=== PATIENT | female | born 1950 | race Caucasian/White ===

== ENCOUNTER 2018-04-17 14:35 | Day surgery (SDC) | payer MEDICARE, OTHER, SELFPAY ==
[2018-04-17] VITALS (7 sets, daily range): BP systolic 91–122; BP diastolic 59–78; PULSE 69–81; RESP 12–16; TEMP 36.1–37.1; O2SAT 96–98; BMI 27.9
--- NOTE | 2018-04-17 | PATH_ITS ---
[facility] Accession Number: [id number] . 01 Material submitted: . RIGHT BREAST . 02 Diagnosis: Right Breast, Re-excision of Margins Lumpectomy Site: One minute focus of atypical ductal hyperplasia. Please see comment. Background of benign breast tissue with features of previous instrumentation. Negative for in situ carcinoma or invasive malignancy. MRV/04/23/2018 . 02 Comment: The focus of atypical ductal hyperplasia measures less than 1 mm and is 8 mm from the nearest (anterior) margin. . 02 Electronically signed: . Gloria Charles MD, Pathologist NPI- [id number] . 01 Gross description: . Received in formalin, labeled 1) Reexcision right breast lumpectomy, short=superior, long=lateral, double=anterior, is a piece of breast tissue with no overlying skin (1.3 cm AP, 5.1 cm SI, 4.6 cm ML) oriented with three black sutures (short-superior, long-lateral, double-anterior). No localization wire is present. The anterior aspect is smooth and appears to be the surface of a previous biopsy cavity. The specimen is serially sectioned S1 into 18 slices with the superior and inferior resection margins as slices #1 and #18, respectively. The breast tissue is fatty and densely fibrous along the anterior aspect. No nodules, masses or lesions are identified. Ink code: purple-anterior surface; yellow-posterior; black-superior; orange-inferior; green-medial; blue-lateral. Section code: (A1) superior resection margin, perpendicularly sectioned; (A2) slices #2 and #3; (A3) slices #4 and #5; (A4) slice #6; (A5) slice #7; (A6) slice #8; (A7) slice #9; (A8) slice #10; (A9) slice #11, further sliced; (A10) slice #12, further sliced; (A11) slices #13 and #14; (A12) slices #15-#17; (A13) inferior resection margin, perpendicularly sectioned. Specimen entirely submitted. Note: Approximate total fixation time in formalin-54 hours 30 minutes, calculated using a collection date of 04/17/2018 with no collection time given. ([id number]) /MRV . 02 Pathologist provided ICD-10: D05.10 . 02 CPT . 301664 Performed at: 01 [facility] [id number] MD Mustapha Oconnor MD Phone: [phone] Performed at: 02 [facility] [address] [place], [place] [id number] MD Gwyn Muñiz MD Phone: [phone]
[2018-04-17] MEDS: LACTATED RINGERS 1,000 ML 42 ML IV (15:13)
--- NOTE | 2018-04-17 15:49 | PM.PREOP ---
Pre-operative Note Interval Note Pre-op Check: History & Physical Reviewed by Physician
[2018-04-17] MEDS: CEFAZOLIN 2 GM/100 ML FROZ.PIGGY IV (16:05)
--- NOTE | 2018-04-17 16:32 | PM.OP.1 ---
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 Complete lateral and posterior margins were removed. Specimen was marked with a short stitch superior, long stitch lateral, and double stitch on the anterior margin which would be the internal surface of the biopsy cavity Closure Type: primary Specimen(s): other Implants & Drains: Hemoclips employed to sadia the lumpectomy cavity Estimated Blood Loss (mL): 15 Blood products transfused: none Procedure in detail: After obtaining informed consent, the patient is brought to the operating room and placed in the supine position on the operating table. Following successful induction of general endotracheal anesthesia, appropriate padding of all bony prominences, and placement of appropriate monitors, the right breast is prepped and draped in the standard surgical fashion. A time-out was held per SC 0 AP protocol. Following infiltration with local anesthetic to create a field block, the existing right breast incision was reopened and carried down through the skin and subcutaneous tissue. The breast was entered and the breast cavity easily identified. A small amount of serosanguineous seroma fluid was aspirated from the cavity. The lateral edge of the lumpectomy cavity was then grasped and the entire lateral and posterior margin excised sharply. No anterior tissue was available for reexcision as we are on the dermis anteriorly and on the muscle posteriorly. The entire specimen was removed as a single piece and marked appropriately for orientation. The wound was checked for hemostasis and such was obtained with a mixture of sutures and Bovie cautery. The wound was irrigated with warm water and checked once again for hemostasis. We were satisfied that all was clean and dry, it was closed in 2 layers with Vicryl and Monocryl suture. All sponge, needle, and instrument counts were correct at conclusion of the case. The patient tolerated the procedure very well. She was allowed to awake from anesthesia and taken to the postanesthesia care unit in good condition Complications: none Condition: stable Disposition: PACU Plan for aftercare: 1. Discharge to home 2. Follow up with me in 2 weeks
[2018-04-17] MEDS: BUPIVACAINE 0.5% (PF) 30 ML VIAL 20 ML INJ (16:36)
[2018-04-17] MEDS: LIDOCAINE 1% W/EPI INJ 20 ML INJ (16:38)
[2018-04-17] MEDS: OXYCODONE/ACETAMINOPHEN 5/325 TABLET 1 TAB PO (17:02)
== END 2018-04-17 17:28 ==
LOC: OR 14:37
PROVIDERS: PCP Family Medicine; Visit Provider Surgery
PROC: (CPT 19301; principal; 2018-04-17 15:45)
DX: D05.10 Intraductal carcinoma in situ of unspecified breast (principal)
CPT/HCPCS: 19301; 88305; J0690; J1100; J2405; J2704; J3010

== ENCOUNTER 2018-11-14 07:45 | Day surgery (SDC) | payer MEDICARE, OTHER, SELFPAY ==
[2018-11-14 08:06] VITALS: BP 106/76; PULSE 71; RESP 15; TEMP 36.4; O2SAT 97; BMI 28.3
[2018-11-14] MEDS: SODIUM CHLORIDE 0.9% 1,000 ML 200 ML IV (08:10)
--- NOTE | 2018-11-14 08:40 | SUR.PREOP ---
pt got light headed with iv start, head of bed down, o2 applied at 2l, cold cloth to head at 0830, 0834 pt feeling much better
--- NOTE | 2018-11-14 09:04 | PM.HP.1 ---
History of Present Illness Date Patient Seen: 11/14/18 Time Patient Seen: 09:06 Chief complaint: [id number] SCREENING COLONOSCOPY Narrative: Very pleasant lady who is well known to me. She presents today for screening colonoscopy. Her last colonoscopy was in 2008. At that time was normal and without any polyps or mucosal abnormalities. She denies new problems or symptoms related to the function of her GI tract. She reports she has colonoscopy as part of a health maintenance program. 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) Esophageal stenosis (Acute) Hyperlipidemia (Acute) Meningioma (Acute) Migraines (Acute) Neck pain (Acute) Surgical History H/O colonoscopy (Acute) H/O esophagogastroduodenoscopy (Acute) H/O oophorectomy (Acute) H/O right breast biopsy (Acute) History of tubal ligation (Acute) S/P laminectomy (Acute) History of bilateral salpingo-oophorectomy (BSO) History of esophageal dilatation (08/17/17) History of esophagogastroduodenoscopy (EGD) (06/12/14) History of esophagogastroduodenoscopy (EGD) (08/17/17) Status post colonoscopy (04/30/09) Status post tubal ligation Family & Social History Family History: Reviewed 11/14/18 by Makayla Grullon MD Social History: household members spouse Tobacco & Substance use: Smoking Status Never smoker alcohol intake current Substance Use Type does not use Meds Home Medications Medication Instructions Recorded Confirmed Type TIMOLOL MALEATE 1 drp OPHTH QDAY #0 04/11/12 04/30/18 History [probiotic] See Label Instructions .ROUTE 05/30/17 08/22/18 History .COMPLEX #0 cholecalciferol (vitamin D3) 400 unit PO DAILY #0 05/30/17 08/22/18 History [Vitamin D3] ondansetron [Zofran ODT] 4 mg PO Q6H PRN #20 tab 18 04/30/18 Rx oxycodone-acetaminophen [Percocet] 1 tab PO Q4-6H PRN #20 tab MDD 5 03/27/18 04/30/18 Rx omeprazole 40 mg capsule,delayed 40 mg PO BID #180 cap 04/04/18 08/22/18 Rx release oxycodone-acetaminophen [Percocet] 1 tab PO Q4-6H PRN #20 tab MDD 6 04/17/18 04/30/18 Rx aspirin 81 mg chewable tablet 81 mg PO DAILY 08/22/18 08/22/18 History tamoxifen PO 08/22/18 08/22/18 History Allergies Allergy/AdvReac Type Severity Reaction Status Date / Time procaine [From Novocain] Allergy Severe heart Verified 11/14/18 08:04 palpitations adhesive tape [ADHESIVE TAPE] Allergy Mild RASH Verified 04/17/18 15:02 codeine [CODEINE] Allergy Mild Nausea Verified 11/14/18 08:04 amoxicillin AdvReac Intermediate Rash Verified 04/17/18 15:02 Metals Allergy Mild Rash Uncoded 04/17/18 15:02 Review of Systems Review of Systems All systems reviewed & are unremarkable except as noted in HPI and below Exam Vital Signs (past 8 hours): - 11/14/18 08:06 Temperature 97.6 F Pulse Rate 71 Respiratory Rate 15 Blood Pressure 106/76 Pulse Oximetry 97 Oxygen Delivery Method Room Air Narrative Exam Narrative: Well-nourished well-developed lady in no distress HEENT: Normocephalic and atraumatic, pupils equal round reactive to light accommodation with anicteric sclera Lungs: Clear to auscultation bilaterally Heart: Regular rate and rhythm Abdomen: Soft, nontender, bowel sounds Extremities: Warm well perfused and without edema Assessment & Plan Plan: Assessment/Plan Narrative: Laverne presents today for colonoscopy for screening purposes. We discussed the risks and benefits procedure and she has expressed a desire to complete it today.
--- NOTE | 2018-11-14 09:08 | P.HP_ITS ---
History of Present Illness Date Patient Seen: 11/14/18 Time Patient Seen: 09:06 Chief complaint: [id number] SCREENING COLONOSCOPY Narrative: Very pleasant lady who is well known to me. She presents today for screening colonoscopy. Her last colonoscopy was in 2008. At that time was normal and without any polyps or mucosal abnormalities. She denies new problems or symptoms related to the function of her GI tract. She reports she has colonoscopy as part of a health maintenance program. 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) Esophageal stenosis (Acute) Hyperlipidemia (Acute) Meningioma (Acute) Migraines (Acute) Neck pain (Acute) Surgical History H/O colonoscopy (Acute) H/O esophagogastroduodenoscopy (Acute) H/O oophorectomy (Acute) H/O right breast biopsy (Acute) History of tubal ligation (Acute) S/P laminectomy (Acute) History of bilateral salpingo-oophorectomy (BSO) History of esophageal dilatation (08/17/17) History of esophagogastroduodenoscopy (EGD) (06/12/14) History of esophagogastroduodenoscopy (EGD) (08/17/17) Status post colonoscopy (04/30/09) Status post tubal ligation Family & Social History Family History: Reviewed 11/14/18 by Makayla Grullon MD Social History: household members spouse Tobacco & Substance use: Smoking Status Never smoker alcohol intake current Substance Use Type does not use Meds Home Medications Medication Instructions Recorded Confirmed Type TIMOLOL MALEATE 1 drp OPHTH QDAY #0 04/11/12 04/30/18 History [probiotic] See Label Instructions .ROUTE 05/30/17 08/22/18 History .COMPLEX #0 cholecalciferol (vitamin D3) 400 unit PO DAILY #0 05/30/17 08/22/18 History [Vitamin D3] ondansetron [Zofran ODT] 4 mg PO Q6H PRN #20 tab 18 04/30/18 Rx oxycodone-acetaminophen [Percocet] 1 tab PO Q4-6H PRN #20 tab MDD 5 03/27/1804/12 Rx omeprazole 40 mg capsule,delayed 40 mg PO BID #180 cap 04/04/18 08/22/18 Rx release oxycodone-acetaminophen [Percocet] 1 tab PO Q4-6H PRN #20 tab MDD 6 04/17/1804/12 Rx aspirin 81 mg chewable tablet 81 mg PO DAILY 08/22/18 08/22/18 History tamoxifen PO 08/22/18 08/22/18 History Allergies Allergy/AdvReac Type Severity Reaction Status Date / Time procaine [From Novocain] Allergy Severe heart Verified 11/14/18 08:04 palpitations adhesive tape [ADHESIVE TAPE] Allergy Mild RASH Verified 04/17/18 15:02 codeine [CODEINE] Allergy Mild Nausea Verified 11/14/18 08:04 amoxicillin AdvReac Intermediate Rash Verified 04/17/18 15:02 Metals Allergy Mild Rash Uncoded 04/17/18 15:02 Review of Systems Review of Systems All systems reviewed & are unremarkable except as noted in HPI and below Exam Vital Signs (past 8 hours): - 11/14/18 08:06 Temperature 97.6 F Pulse Rate 71 Respiratory Rate 15 Blood Pressure 106/76 Pulse Oximetry 97 Oxygen Delivery Method Room Air Narrative Exam Narrative: Well-nourished well-developed lady in no distress HEENT: Normocephalic and atraumatic, pupils equal round reactive to light accommodation with anicteric sclera Lungs: Clear to auscultation bilaterally Heart: Regular rate and rhythm Abdomen: Soft, nontender, bowel sounds Extremities: Warm well perfused and without edema Assessment & Plan Plan: Assessment/Plan Narrative: Laverne presents today for colonoscopy for screening purposes. We discussed the risks and benefits procedure and she has expressed a desire to complete it today.
[2018-11-14] MEDS: MIDAZOLAM 5 MG/5 ML VIAL IV (09:13)
[2018-11-14] MEDS: fentaNYL 250 MCG/5 ML INJ IV (09:14)
--- NOTE | 2018-11-14 09:30 | PM.OP.1 ---
Operative Date/Time/Diagnoses Date of procedure: 11/14/18 Time of procedure: 09:30 Pre-op diagnosis: Screening Post-op diagnosis: same Procedure & Clinicians Procedure: Colonoscopy to the cecum Same procedure as scheduled: Yes Indications: Last colonoscopy 2004 Surgeon: Makayla Grullon Anesthesia Type: Sedation (Versed 5 mg; fentanyl 200 mcg) Operative Notes Findings: 1. Excellent prep 2. No polyps or mass lesions 3. No AV malformations 4. Significant diverticulosis in a from the colorectal junction to 40 cm. Multiple false passages with honeycombing of the entire area 5. Grade 1-2 internal hemorrhoids Closure Type: not applicable Specimen(s): none sent Procedure in detail: After obtaining informed consent, the patient was brought to the GI suite and placed in the left lateral decubitus position on the examination table. After placement of appropriate monitors, the patient was given incremental doses of Versed and Fentanyl until an appropriate level of sedation was achieved. A time out was held per SCOAP protocol. A digital rectal examination was performed and did not reveal any masses or obstructing lesions. The colonoscope was gently passed into the patient's anus and the entire colon navigated to the level of the cecum with moderate difficulty due to colon tortuosity. Multiple changes of position and external pressure required to reach the cecum Once in the cecum, the scope was withdrawn being sure to go before and beyond all mucosal folds and prominences and get an excellent examination. The findings are noted above. At the level of the rectal vault, the scope was retroflexed and the internal anal canal was examined. The scope was straightened and air aspirated from the colon. The instrument was removed from the patient's body and the procedure was concluded. The patient was allowed to awaken from sedation without difficulty and taken to the post-anesthesia care unit in good condition. Complications: none Condition: stable Disposition: PACU Plan for aftercare: 1. Discharge to home 2. Daily stool softeners and high-fiber diet for control of diverticulosis 3. Plan for next colonoscopy in 10 years or as clinically indicated
[2018-11-14 09:33] VITALS: BP 101/62; PULSE 74; RESP 5; TEMP 36.2; O2SAT 98
[2018-11-14 09:38] VITALS: BP 106/61; PULSE 74; RESP 6; O2SAT 98
[2018-11-14 09:43] VITALS: BP 90/62; PULSE 73; RESP 8; O2SAT 100
[2018-11-14 09:48] VITALS: BP 110/71; PULSE 76; RESP 15; O2SAT 98
[2018-11-14 09:52] VITALS: BP 125/77; PULSE 89; RESP 15; TEMP 36.6; O2SAT 94
== END 2018-11-14 10:19 | disposition home or self-care (01) ==
PROVIDERS: PCP Family Medicine; Visit Provider Surgery
PROC: 0DJD8ZZ Inspection of Lower Intestinal Tract, Via Natural or Artificial Opening Endoscopic (ICD-10-PCS; CPT 45378; principal; 2018-11-14 08:45)
DX: Z12.11 Encounter for screening for malignant neoplasm of colon (principal); K57.30 Diverticulosis of large intestine without perforation or abscess without bleeding; K64.1 Second degree hemorrhoids
CPT/HCPCS: G0121; 99152; J2250; J3010

== ENCOUNTER → 2019-02-12 16:02 | Outpatient (CLI) | payer MEDICARE, OTHER, SELFPAY ==
--- NOTE | 2019-02-12 | DI.MG.S_ITS ---
BILATERAL DIGITAL SCREENING MAMMOGRAM 3D/2D WITH CAD POST LUMPECTOMY: 02/12/2019 CLINICAL: Routine screening. Personal history of right breast cancer. Post right lumpectomy and radiation therapy. Family history of breast cancer. Comparison is made to exams dated: 03/27/2018 specimen, 03/27/2018 [facility], 03/18/2018 mammogram - [facility], 01/21/2016 mammogram, 01/19/2015 mammogram, and 01/14/2014 mammogram - [facility]. There are scattered fibroglandular elements in both breasts. Current study was also evaluated with a Computer Aided Detection (CAD) system. There are benign post operative findings in the right breast. No significant masses, calcifications, or other findings are seen in either breast. There has been no significant interval change. IMPRESSION: There is no mammographic evidence of malignancy. A 1 year screening mammogram is recommended. This exam was interpreted at Station ID: [id number]. NOTE: For mammograms, a report in lay terms will be sent to the patient. Approximately 15% of breast malignancies will not be visualized mammographically. In the management of a palpable breast mass, a negative mammogram must not discourage biopsy of a clinically suspicious lesion. Electronically Signed By: Mustapha hernandez/magaly:02/12/2019 17:46:47 copy to: ROSALIE BILLS copy to: Shaye Grullon letter sent: Normal Exam ACR BI-RADS Category 2: Benign Finding(s) 3342F
== END ==
PROVIDERS: PCP Family Medicine; Visit Provider Family Medicine
DX: Z12.31 Encounter for screening mammogram for malignant neoplasm of breast (principal); Z85.3 Personal history of malignant neoplasm of breast; Z80.3 Family history of malignant neoplasm of breast
CPT/HCPCS: 77063; 77067

== ENCOUNTER → 2019-04-25 10:38 | Outpatient (CLI) | payer MEDICARE, OTHER, SELFPAY ==
[2019-04-25 13:11] LABS: Cholesterol 200 mg/dL (140-199); HDL Cholesterol 45 mg/dL (40-60); LDL Cholesterol Calculated 123 mg/dL (<100); Triglycerides 158 mg/dL (35-150)
== END ==
PROVIDERS: PCP Family Medicine; Visit Provider Family Medicine
DX: Z13.220 Encounter for screening for lipoid disorders (principal); E78.5 Hyperlipidemia, unspecified
CPT/HCPCS: 36415; 80061

== ENCOUNTER → 2019-05-02 15:17 | Outpatient (CLI) | payer MEDICARE, OTHER, SELFPAY ==
--- NOTE | 2019-05-02 15:20 | DI.RAD.S_ITS ---
PROCEDURE: XR HIP W PEL IF DONE RT 2V INDICATIONS: Hip Impingement TECHNIQUE: AP pelvis with lateral view(s) of the right hip(s). COMPARISON: None. FINDINGS: Bones: No fractures or dislocations. Pelvic ring appears intact. No suspicious bony lesions. Lower lumbar spondylosis. Mild bilateral hip degeneration. Degenerative sclerosis and change at the pubis symphysis. Soft tissues: The visualized bowel gas pattern is normal. No suspicious soft tissue calcifications. Nonspecific right-sided pelvic calcification. Pessary like device projecting in the midline pelvis. IMPRESSION: Mild bilateral hip degeneration. Dictated by: Erasto Sousa M.D. on 05/02/2019 at 16:04 Approved by: Erasto Sousa M.D. on 05/02/2019 at 16:06
== END ==
PROVIDERS: PCP Family Medicine; Visit Provider Family Medicine
DX: M25.851 Other specified joint disorders, right hip (principal); M16.0 Bilateral primary osteoarthritis of hip
CPT/HCPCS: 73502

== ENCOUNTER → 2019-05-26 13:56 | Outpatient (CLI) | payer MEDICARE, OTHER, SELFPAY | PROVIDERS: PCP Family Medicine; Visit Provider Family Medicine | DX: M85.852 Other specified disorders of bone density and structure, left thigh (principal); M85.851 Other specified disorders of bone density and structure, right thigh | CPT/HCPCS: 77080 ==

== ENCOUNTER → 2020-04-28 | Outpatient (CLI) | payer MEDICARE, OTHER, SELFPAY ==
--- NOTE | 2020-04-28 | DI.MG.S_ITS ---
BILATERAL DIGITAL SCREENING MAMMOGRAM 3D/2D WITH CAD POST LUMPECTOMY: 04/28/2020 CLINICAL: Routine screening. Personal history of right breast cancer. Family history of breast cancer. Comparison is made to exams dated: 02/12/2019 mammogram, 01/31/2018 mammogram, and 01/21/2016 mammogram - [facility]. There are scattered fibroglandular elements in both breasts. Current study was also evaluated with a Computer Aided Detection (CAD) system. There are benign post operative findings in the right breast. No significant masses, calcifications, or other findings are seen in either breast. There has been no significant interval change. IMPRESSION: There is no mammographic evidence of malignancy. A 1 year screening mammogram is recommended. This exam was interpreted at Station ID: [id number]. NOTE: For mammograms, a report in lay terms will be sent to the patient. Approximately 15% of breast malignancies will not be visualized mammographically. In the management of a palpable breast mass, a negative mammogram must not discourage biopsy of a clinically suspicious lesion. Electronically Signed By: Shaye carter/magaly:04/28/2020 15:43:19 copy to: ROSALIE BILLS copy to: Shaye Grullon copy to: MARINA BARRY letter sent: Normal Exam ACR BI-RADS Category 2: Benign Finding(s) 3342F
== END ==
LOC: MAMMO 11:00
PROVIDERS: PCP Family Medicine; Referring Provider Family Medicine; Visit Provider Family Medicine
DX: Z12.31 Encounter for screening mammogram for malignant neoplasm of breast (principal); Z85.3 Personal history of malignant neoplasm of breast; Z80.3 Family history of malignant neoplasm of breast
CPT/HCPCS: 77063; 77067

== ENCOUNTER → 2021-02-09 09:24 | Outpatient (CLI) | payer MEDICARE, OTHER, SELFPAY ==
[2021-02-09 10:48] LABS: Alanine Aminotransferase 23 IU/L (<35); Albumin Globulin Ratio 1.5 (1.0-2.8); Alkaline Phosphatase 48 U/L (38-126); Aspartate Aminotransferase 28 IU/L (14-36); BUN Creatinine Ratio 20.9 (6-22); Bilirubin Total 0.4 mg/dL (0.2-1.3); Blood Urea Nitrogen 14 mg/dL (7-17); Carbon Dioxide 30 mmol/L (22-32); Chloride 107 mmol/L (98-107); Cholesterol 211 mg/dL (140-199); Estimated Glomerular Filt Rate > 60.0 mL/min (>60); Globulin 2.7 g/dL (1.7-4.1); Glucose 102 mg/dL (80-110); HDL Cholesterol 45 mg/dL (40-60); HEMOLYSIS < 15 (0-50); LDL Cholesterol Calculated 126 mg/dL (<100); Potassium 4.1 mmol/L (3.4-5.1); Sodium 140 mmol/L (137-145); Total Protein 6.7 g/dL (6.3-8.2); Triglycerides 199 mg/dL (35-150)
== END ==
PROVIDERS: PCP Family Medicine; Referring Provider Family Medicine; Visit Provider Family Medicine
DX: E78.5 Hyperlipidemia, unspecified (principal)
CPT/HCPCS: 36415; 80053; 80061

== ENCOUNTER → 2021-04-29 10:20 | Outpatient (CLI) | payer MEDICARE, OTHER, SELFPAY ==
--- NOTE | 2021-04-29 | DI.MG.S_ITS ---
BILATERAL DIGITAL SCREENING MAMMOGRAM 3D/2D WITH CAD: 04/29/2021 CLINICAL: Routine screening. Personal history of right breast cancer. Family history of breast cancer. Comparison is made to exams dated: 04/28/2020 mammogram, 02/12/2019 mammogram, and 01/31/2018 mammogram - [facility]. There are scattered fibroglandular elements in both breasts. Current study was also evaluated with a Computer Aided Detection (CAD) system. There are benign post operative findings in the right breast. No significant masses, calcifications, or other findings are seen in either breast. There has been no significant interval change. IMPRESSION: BENIGN There is no mammographic evidence of malignancy. A 1 year screening mammogram is recommended. This exam was interpreted at Station ID: [id number]. NOTE: For mammograms, a report in lay terms will be sent to the patient. Approximately 15% of breast malignancies will not be visualized mammographically. In the management of a palpable breast mass, a negative mammogram must not discourage biopsy of a clinically suspicious lesion. Electronically Signed By: Siva kuhn/magaly:04/29/2021 11:51:31 copy to: ROSALIE BILLS copy to: Shaye Grullon copy to: MARINA BARRY letter sent: Normal Exam ACR BI-RADS Category 2: Benign Finding(s) 3342F
== END ==
PROVIDERS: PCP Family Medicine; Referring Provider Internal Medicine Hematology & Oncology; Visit Provider Internal Medicine Hematology & Oncology
DX: Z12.31 Encounter for screening mammogram for malignant neoplasm of breast (principal)
CPT/HCPCS: 77063; 77067

== ENCOUNTER → 2021-10-25 09:32 | Outpatient (CLI) | payer MEDICARE, OTHER, SELFPAY ==
[2021-10-25 10:43] LABS: Alanine Aminotransferase 19 IU/L (<35); Albumin Globulin Ratio 1.6 (1.0-2.8); Alkaline Phosphatase 43 U/L (38-126); Aspartate Aminotransferase 23 IU/L (14-36); BUN Creatinine Ratio 22.7 (6-22); Bilirubin Total 0.5 mg/dL (0.2-1.3); Blood Urea Nitrogen 17 mg/dL (7-17); Calcium 9.2 mg/dL (8.4-10.2); Carbon Dioxide 28 mmol/L (22-32); Chloride 106 mmol/L (98-107); Cholesterol 179 mg/dL (140-199); Estimated Glomerular Filt Rate > 60.0 mL/min (>60); Globulin 2.5 g/dL (1.7-4.1); Glucose 97 mg/dL (80-110); HDL Cholesterol 51 mg/dL (40-60); HEMOLYSIS < 15 (0-50); LDL Cholesterol Calculated 96 mg/dL (<100); Potassium 4.2 mmol/L (3.4-5.1); Sodium 139 mmol/L (137-145); Total Protein 6.5 g/dL (6.3-8.2); Triglycerides 160 mg/dL (35-150)
== END ==
PROVIDERS: PCP Family Medicine; Referring Provider Family Medicine; Visit Provider Family Medicine
DX: E78.2 Mixed hyperlipidemia (principal)
CPT/HCPCS: 36415; 80053; 80061

== ENCOUNTER → 2021-12-07 10:43 | Outpatient (CLI) | payer MEDICARE, OTHER, SELFPAY ==
--- NOTE | 2021-12-07 10:45 | DI.US.S_ITS ---
PROCEDURE: US CAROTID DOPPLER BI INDICATIONS: RETINAL INFARCT TECHNIQUE: Color and pulse Doppler interrogation was performed of both carotid systems, with image documentation and velocity measurements. COMPARISON: None. FINDINGS: Stenosis calculations are based on SRU (Society of Radiologists in Ultrasound) criteria. The flow velocities and the arterial waveforms are normal within both carotid arterial systems. The estimated degree of internal carotid artery stenosis is less than 50%. Antegrade flow is confirmed within both vertebral arteries. IMPRESSION: No hemodynamically significant stenosis is seen. Dictated by: Kevin De Leon M.D. on 12/07/2021 at 11:00 Approved by: Kevin De Leon M.D. on 12/07/2021 at 11:01
== END ==
PROVIDERS: PCP Family Medicine; Referring Provider Family Medicine; Visit Provider Family Medicine
DX: R09.89 Other specified symptoms and signs involving the circulatory and respiratory systems (principal)
CPT/HCPCS: 93880

== ENCOUNTER → 2022-05-01 09:16 | Outpatient (CLI) | payer MEDICARE, OTHER, SELFPAY ==
--- NOTE | 2022-05-01 | DI.MG.S_ITS ---
BILATERAL DIGITAL SCREENING MAMMOGRAM 3D/2D WITH CAD POST LUMPECTOMY: 05/01/2022 CLINICAL: Routine screening. Personal history of right breast cancer. Comparison is made to exams dated: 04/29/2021 mammogram, 04/28/2020 mammogram, and 02/12/2019 mammogram - [facility]. There are scattered fibroglandular elements in both breasts. Current study was also evaluated with a Computer Aided Detection (CAD) system. There are benign post operative findings in the right breast. No significant masses, calcifications, or other findings are seen in either breast. There has been no significant interval change. IMPRESSION: BENIGN There is no mammographic evidence of malignancy. A 1 year screening mammogram is recommended. This exam was interpreted at Station ID: [id number]. NOTE: For mammograms, a report in lay terms will be sent to the patient. Approximately 15% of breast malignancies will not be visualized mammographically. In the management of a palpable breast mass, a negative mammogram must not discourage biopsy of a clinically suspicious lesion. Electronically Signed By: Siva kuhn/magaly:05/01/2022 10:04:00 copy to: ROSALIE BILLS copy to: Antonette Martin copy to: MARINA BARRY letter sent: Normal Exam ACR BI-RADS Category 2: Benign Finding(s) 3342F
== END ==
PROVIDERS: PCP Family Medicine; Referring Provider Internal Medicine Hematology & Oncology; Visit Provider Internal Medicine Hematology & Oncology
DX: Z12.31 Encounter for screening mammogram for malignant neoplasm of breast (principal); Z85.3 Personal history of malignant neoplasm of breast
CPT/HCPCS: 77063; 77067

== ENCOUNTER → 2022-05-01 09:37 | Outpatient (CLI) | payer MEDICARE, OTHER, SELFPAY ==
[2022-05-01 11:32] LABS: Add Manual Diff / Slide Review NO; Basophils Absolute Auto 100 /uL (0-100); Basophils Percent Auto 1.3 % (0-2); Eosinophils Absolute Auto 300 /uL (0-450); Eosinophils Percent Auto 5.6 % (2-4); Hemoglobin 14.1 g/dL (12.0-16.0); Lymphocytes Absolute Auto 1200 /uL (1100-4500); Mean Corpuscular HGB Conc 33.5 % (30-36); Mean Corpuscular Hemoglobin 29.5 PG (26-34); Monocytes Absolute Auto 400 /uL (0-900); Monocytes Percent Auto 9.3 % (3-14); Neutrophils Absolute Auto 2600 /uL (1500-7000); Neutrophils Percent Auto 57.8 % (50-75); Platelet Count 228 X10^3/uL (150-400); Red Blood Cell Count 4.78 X10^6/uL (4.0-5.2); Red Cell Distribution Width 12.8 % (11.6-14.8); White Blood Cell Count 4.6 X10^3/uL (4.5-11.0)
[2022-05-01 12:27] LABS: Alanine Aminotransferase 16 IU/L (<35); Albumin 4.1 g/dL (3.5-5.0); Albumin Globulin Ratio 1.5 (1.0-2.8); Alkaline Phosphatase 53 U/L (38-126); Aspartate Aminotransferase 22 IU/L (14-36); BUN Creatinine Ratio 22.5 (6-22); Bilirubin Total 0.3 mg/dL (0.2-1.3); Blood Urea Nitrogen 16 mg/dL (7-17); Carbon Dioxide 26 mmol/L (22-32); Chloride 107 mmol/L (98-107); Cholesterol 188 mg/dL (140-199); Estimated Glomerular Filt Rate > 60 mL/min (>60); Globulin 2.7 g/dL (1.7-4.1); Glucose 97 mg/dL (80-110); HDL Cholesterol 49 mg/dL (40-60); HEMOLYSIS < 15 (0-50); LDL Cholesterol Calculated 100 mg/dL (<100); Potassium 4.2 mmol/L (3.4-5.1); Sodium 140 mmol/L (137-145); Total Protein 6.8 g/dL (6.3-8.2); Triglycerides 194 mg/dL (35-150)
== END ==
PROVIDERS: PCP Family Medicine; Referring Provider Family Medicine; Visit Provider Family Medicine
DX: R73.01 Impaired fasting glucose (principal); E78.5 Hyperlipidemia, unspecified; Z00.00 Encounter for general adult medical examination without abnormal findings
CPT/HCPCS: 36415; 80053; 80061; 85025

== ENCOUNTER → 2023-05-02 09:52 | Outpatient (CLI) | payer MEDICARE, OTHER, SELFPAY ==
--- NOTE | 2023-05-02 | DI.MG.S_ITS ---
BILATERAL DIGITAL SCREENING MAMMOGRAM 3D/2D WITH CAD: 05/02/2023 CLINICAL: Routine screening. Personal history of right breast cancer. Comparison is made to exams dated: 05/01/2022 mammogram, 04/29/2021 mammogram, and 04/28/2020 mammogram - [facility]. There are scattered areas of fibroglandular density in both breasts (category b / 25%-50% glandular tissue). Current study was also evaluated with a Computer Aided Detection (CAD) system. There are benign post operative findings in the right breast. No significant masses, calcifications, or other findings are seen in either breast. There has been no significant interval change. IMPRESSION: BENIGN There is no mammographic evidence of malignancy. A 1 year screening mammogram is recommended. This exam was interpreted at Station ID: [id number]. NOTE: For mammograms, a report in lay terms will be sent to the patient. Approximately 15% of breast malignancies will not be visualized mammographically. In the management of a palpable breast mass, a negative mammogram must not discourage biopsy of a clinically suspicious lesion. Electronically Signed By: Anupam cabrera/magaly:05/02/2023 11:26:22 copy to: ROSALIE BILLS copy to: Antonette Martin copy to: MARINA BARRY letter sent: Normal Exam ACR BI-RADS Category 2: Benign Finding(s) 3342F
== END ==
PROVIDERS: PCP Family Medicine; Referring Provider Family Medicine; Visit Provider Family Medicine
DX: Z12.31 Encounter for screening mammogram for malignant neoplasm of breast (principal); Z85.3 Personal history of malignant neoplasm of breast
CPT/HCPCS: 77063; 77067

== ENCOUNTER → 2023-08-20 09:50 | Outpatient (CLI) | payer MEDICARE, OTHER, SELFPAY ==
--- NOTE | 2023-08-20 09:51 | DI.RAD.S_ITS ---
Bone Density Report Name: LINDA OLSEN Age: 72 Sex: Female Ethnicity: White Date of : 1950 Indication: postmenopausal; screening for osteoporosis; history of glucocorticoids; Referring Provider: IAN CORTEZ Study: Bone densitometry was performed. Exam Date: August 20, 2023 Accession number: [id number] Bone Density: Region BMD T-score Z-score Classification AP Spine(L1-L4) 0.921 -1.1 1.1 Osteopenia Femoral Neck (Left) 0.678 -1.5 0.4 Osteopenia Total Hip (Left) 0.831 -0.9 0.7 Normal Femoral Neck (Right) 0.653 -1.8 0.2 Osteopenia Total Hip (Right) 0.799 -1.2 0.5 Osteopenia Total Hip Mean 0.815 -1.1 0.6 Osteopenia World Health Organization criteria for BMD impression classify patients as: Normal (T-score at or above -1.0), Osteopenia (T-score between -1.0 and -2.5), or Osteoporosis (T-score at or below -2.5). 10-year Fracture Risk(1): Major Osteoporotic Fracture 17% Hip Fracture 3.8% Reported Risk Factors: [place] (), Neck BMD=0.653, BMI=29.3, glucocorticoids (1) FRAX(R) Version 3.08. Fracture probability calculated for an untreated patient. Fracture probability may be lower if the patient has received treatment. Previous Exams: -- Region Exam Age BMD T-score BMD Change BMD Change Date g/cm2 vs Baseline vs Previous -- AP Spine (L1-L4) 08/20/2023 72 0.921 -1.1 -0.038 (-3.9%)# -0.038 (-3.9%)# 05/26/2019 68 0.959 -0.8 Total Hip(Left) 08/20/2023 72 0.831 -0.9 -0.043 (-4.9%)# -0.043 (-4.9%)# 05/26/2019 68 0.874 -0.6 Total Hip(Right) 08/20/2023 72 0.799 -1.2 -0.032 (-3.9%)# -0.032 (-3.9%)# 05/26/2019 68 0.831 -0.9 -- *Denotes significance at 95% confidence level, LSC for AP Spine = 0.022 g/cm2, LSC for Total Hip = 0.027 g/cm2 # Denotes dissimilar scan types or analysis methods Impression: The patient has low bone mass, based on the Right Femoral Neck T-score. The patient has an estimated ten-year risk of hip fracture of 3.8% and an estimated ten-year risk of major fracture of 17%, based on the WHO FRAX algorithm. The patient has risk factors, including: history of glucocorticoid therapy. No significant bone loss was observed. Discussion: BONE DENSITY IS LOW AT ONE OR MORE SKELETAL SITES. THE PATIENT'S BMD AND CLINICAL RISK FACTORS CONTRIBUTE TO THIS PATIENT'S INCREASED RISK OF FRACTURE. This patient's lowest T-score is low at one or more skeletal sites. It meets the World Health Organization's (WHO) criteria for low bone mass (T-score between -1.0 and -2.5). The patient's 10-year risk of hip fracture as calculated by FRAX exceeds the threshold where pharmacological therapy is recommended by the National Osteoporosis Foundation (NOF). However, all treatment decisions require clinical judgment and consideration of individual patient factors, including patient preferences, comorbidities, previous drug use, risk factors not captured in the FRAX model (e.g., frailty, falls, vitamin D deficiency, increased bone turnover, interval significant decline in bone density) and possible under or overestimation of fracture risk by FRAX. The patient should follow a healthful lifestyle (good nutrition with adequate calcium and vitamin D, and appropriate weight-bearing exercise). Follow-Up: Consider a repeat BMD and Vertebral Fracture Assessment (VFA) exam in 2 years or sooner if medically necessary, to reassess this patient's status. Reported by: KATRIN CAST M.D. on 08/20/2023 10:33:00 AM.
== END ==
PROVIDERS: PCP Family Medicine; Referring Provider Family Medicine; Visit Provider Family Medicine
DX: N95.1 Menopausal and female climacteric states (principal); R93.7 Abnormal findings on diagnostic imaging of other parts of musculoskeletal system; M85.89 Other specified disorders of bone density and structure, multiple sites; Z92.241 Personal history of systemic steroid therapy
CPT/HCPCS: 77080

== ENCOUNTER → 2024-05-06 11:37 | Outpatient (CLI) | payer MEDICARE, OTHER, SELFPAY ==
--- NOTE | 2024-05-06 11:39 | DI.MG.S_ITS ---
BILATERAL DIGITAL SCREENING MAMMOGRAM 3D/2D WITH CAD POST LUMPECTOMY: 05/06/2024 CLINICAL: Routine screening. Personal history of right breast cancer. Comparison is made to exams dated: 05/02/2023 mammogram, 05/01/2022 mammogram, and 04/29/2021 mammogram - [facility]. There are scattered areas of fibroglandular density in both breasts (category b / 25%-50% glandular tissue). Current study was also evaluated with a Computer Aided Detection (CAD) system. There are benign post operative findings in the right breast. No significant masses, calcifications, or other findings are seen in either breast. There has been no significant interval change. IMPRESSION: BENIGN There is no mammographic evidence of malignancy. A 1 year screening mammogram is recommended. This exam was interpreted at Station ID: [id number]. NOTE: For mammograms, a report in lay terms will be sent to the patient. Approximately 15% of breast malignancies will not be visualized mammographically. In the management of a palpable breast mass, a negative mammogram must not discourage biopsy of a clinically suspicious lesion. Electronically Signed By: Rick sheridan/magaly:05/07/2024 09:38:33 copy to: ROSALIE BILLS copy to: ETHEL SANDERS copy to: MARINA BARRY letter sent: Normal Exam ACR BI-RADS Category 2: Benign Finding(s) 3342F
== END ==
PROVIDERS: PCP Family Medicine; Referring Provider Family Medicine; Visit Provider Family Medicine
DX: Z12.31 Encounter for screening mammogram for malignant neoplasm of breast (principal); Z85.3 Personal history of malignant neoplasm of breast; R92.323 Mammographic fibroglandular density, bilateral breasts
CPT/HCPCS: 77063; 77067

== ENCOUNTER → 2024-08-05 13:35 | Outpatient (CLI) | payer MEDICARE, OTHER, SELFPAY ==
[2024-08-05 14:35] LABS: Alanine Aminotransferase 33 IU/L (<35); Albumin 4.3 g/dL (3.5-5.0); Albumin Globulin Ratio 1.5 (1.0-2.8); Alkaline Phosphatase 81 U/L (38-126); Aspartate Aminotransferase 32 IU/L (14-36); BUN Creatinine Ratio 17.9 (6-22); Bilirubin Total 0.5 mg/dL (0.2-1.3); Blood Urea Nitrogen 12 mg/dL (7-17); Calcium 9.2 mg/dL (8.4-10.2); Carbon Dioxide 26 mmol/L (22-32); Chloride 107 mmol/L (98-107); Cholesterol 206 mg/dL (140-199); Estimated Glomerular Filt Rate > 60 mL/min (>60); Globulin 2.8 g/dL (1.7-4.1); Glucose 90 mg/dL (80-110); HDL Cholesterol 52 mg/dL (40-60); HEMOLYSIS < 15 (0-50); LDL Cholesterol Calculated 120 mg/dL (<100); Potassium 4.3 mmol/L (3.4-5.1); Sodium 140 mmol/L (137-145); Total Protein 7.1 g/dL (6.3-8.2); Triglycerides 170 mg/dL (35-150)
[2024-08-05 14:40] LABS: Hemoglobin A1C% w Est Avg Glu 5.5 % (4.0-6.0)
[2024-08-07 21:59] LABS: Hep C Virus Ab w/Reflex Quant NEGATIVE s/c (NEGATIVE)
== END ==
PROVIDERS: PCP Family Medicine; Referring Provider Family Medicine; Visit Provider Family Medicine
DX: Z00.00 Encounter for general adult medical examination without abnormal findings (principal); R73.01 Impaired fasting glucose; E78.2 Mixed hyperlipidemia; E66.3 Overweight; Z11.59 Encounter for screening for other viral diseases; K44.9 Diaphragmatic hernia without obstruction or gangrene
CPT/HCPCS: 36415; 80053; 80061; 83036; 86803

== ENCOUNTER → 2025-05-12 13:56 | Outpatient (CLI) | payer MEDICARE, OTHER, SELFPAY ==
--- NOTE | 2025-05-12 14:00 | DI.MG.S_ITS ---
MM screening mammo BI: 05/12/2025. BI-RADS: 2 CLINICAL: 74-year old female for bilateral screening mammogram. No Tyrer-Cuzick risk score calculation due to the patient's personal history of breast cancer. Patient reports a history of right breast carcinoma diagnosed at age 67. Status-post right lumpectomy with radiation therapy and hormonal therapy. No first-degree family history of breast cancer. Current reported family history of breast cancer: maternal aunt. The patient had a prior right breast biopsy. PRIOR EXAMS 05/06/2024, 05/02/2023, 05/01/2022, 04/29/2021. MAMMOGRAPHY TECHNIQUE: 2D and 3D (tomosynthesis) digital mammographic views obtained, with additional images as needed for full coverage. Current study was also evaluated with a Computer Aided Detection (CAD) system. DENSITY B. There are scattered areas of fibroglandular density. MAMMOGRAPHY FINDINGS Right: Benign-appearing post-surgical changes noted on the right. There are no suspicious masses, calcifications, or other findings in the breast. Left: No suspicious mass, asymmetry, microcalcification, or other abnormality seen. IMPRESSION: Right * No evidence of malignancy with benign findings. Left * No evidence of malignancy. RECOMMENDATIONS Bilateral * Annual screening mammography. OVERALL ASSESSMENT CATEGORY BI-RADS-2: Benign. The [employer] recommends annual screening mammography beginning at age 40 for women with average risk of breast cancer. ELECTRONICALLY SIGNED: Dixon Mejia M.D. on 05/12/2025 at 04:27:12 PM PT Interpreting Station ID: [id number]
== END ==
LOC: MAMMO 13:58
PROVIDERS: PCP Family Medicine; Referring Provider Family Medicine; Visit Provider Family Medicine
DX: Z12.31 Encounter for screening mammogram for malignant neoplasm of breast (principal); Z85.3 Personal history of malignant neoplasm of breast; Z80.3 Family history of malignant neoplasm of breast
CPT/HCPCS: 77063; 77067

== ENCOUNTER → 2025-08-10 12:22 | Outpatient (CLI) | payer MEDICARE, OTHER, SELFPAY ==
[2025-08-10 13:17] LABS: Alanine Aminotransferase 26 IU/L (<35); Albumin 4.5 g/dL (3.5-5.0); Albumin Globulin Ratio 1.6 (1.0-2.8); Alkaline Phosphatase 70 U/L (38-126); Blood Urea Nitrogen 16 mg/dL (7-17); Calcium 9.4 mg/dL (8.4-10.2); Carbon Dioxide 27 mmol/L (22-32); Chloride 104 mmol/L (98-107); Cholesterol 249 mg/dL (140-199); Estimated Glomerular Filt Rate > 60 mL/min (>60); Globulin 2.9 g/dL (1.7-4.1); Glucose 95 mg/dL (70-99); HDL Cholesterol 54 mg/dL (40-60); HEMOLYSIS < 15 (0-50); Potassium 4.2 mmol/L (3.4-5.1); Sodium 141 mmol/L (137-145); Total Protein 7.4 g/dL (6.3-8.2); Triglycerides 289 mg/dL (35-150)
== END ==
PROVIDERS: PCP Family Medicine; Referring Provider Family Medicine; Visit Provider Family Medicine
DX: E78.2 Mixed hyperlipidemia (principal); Z00.00 Encounter for general adult medical examination without abnormal findings
CPT/HCPCS: 36415; 80053; 80061

== ENCOUNTER → 2025-09-15 13:44 | Outpatient (CLI) | payer MEDICARE, OTHER, SELFPAY ==
--- NOTE | 2025-09-15 13:46 | DI.RAD.S_ITS ---
PROCEDURE: XR DEXA AXIAL SKELETON INDICATIONS: screening COMPARISON: [facility], CR, XR DEXA AXIAL SKELETON, 05/26/2019, 14:41. [facility], CR, XR DEXA AXIAL SKELETON, 08/20/2023, 10:14. FINDINGS: Lumbar Spine: Bone mineral density 0.949 g/cm2, T score -0.9. Since the most recent prior study, there has been a statistically significant increase in bone mineral density by 3.1%. Left Femoral Neck: Bone mineral density 0.656 g/cm2, T score -1.7. Left Hip: Bone mineral density 0.834 g/cm2, T score -0.9. Since the most recent prior study, there has been no statistically significant change in bone mineral density. Fracture Risk Calculation (when applicable): 10-year fracture risk of a major osteoporotic fracture 12% and of a hip fracture 2.5%. (T score greater or equal to -1.0 to: NORMAL) (T score from -1.1 to -2.4: OSTEOPENIA) (T score less than or equal to -2.5: OSTEOPOROSIS) IMPRESSION: 1. By WHO criteria, patient has osteopenia. 2. Interval statistically significant increase in bone mineral density at the lumbar spine and no significant change in bone mineral density at the left hip. Follow-up guidelines as follows: Osteoporosis: Consider a repeat DEXA and Vertebral Fracture Assessment (VFA) exam in 2 years or sooner if medically necessary, to reassess this patient's status. Osteopenia: Consider a repeat DEXA in 2-3 years to reassess this patient's status, or if there is a new clinical indication. Normal: Consider a repeat DEXA in 5 years or sooner, or if there is a new clinical indication. All treatment decisions require clinical judgment and consideration of individual patient factors, including patient preferences, comorbidities, previous drug use, risk factors not captured in the FRAX model (e.g., frailty, falls, vitamin D deficiency, increased bone turnover, interval significant decline in bone density ) and possible under- or over-estimation of fracture risk by FRAX. In addition, the NOF Guide recommends that FDA-approved medical therapies be considered in postmenopausal women and men age >= 50 years with a: * Hip or vertebral (clinical or morphometric) fracture * T-score of <=-2.5 at the spine or hip * Ten-year fracture probability by FRAX of >= 3% for hip fracture or >=20% for major osteoporotic fracture. Dictated by: Rossana VALLE Interpreted: Siva Kent MD on 09/15/2025 at 14:22 Transcribed by: MOIZ on 09/15/2025 at 14:24 Approved by: Siva Kent M.D. on 09/15/2025 at 21:23
== END ==
LOC: RAD 13:45
PROVIDERS: PCP Family Medicine; Referring Provider Family Medicine; Visit Provider Family Medicine
DX: M85.89 Other specified disorders of bone density and structure, multiple sites (principal); M85.88 Other specified disorders of bone density and structure, other site
CPT/HCPCS: 77080

== ENCOUNTER 2025-10-06 06:38 | Day surgery (SDC) | payer MEDICARE, OTHER, SELFPAY ==
--- NOTE | 2025-10-06 | PATH_ITS ---
[facility] Accession Number: [id number] No. of containers..02 Tissue . 01 Material submitted: . PART A: stomach - ANTRUM PART B: esophagus, E-G Junction - GE JUNCTION . 01 Diagnosis: Part A: ANTRUM: Gastric mucosa with mild chronic inflammation and focal intestinal metaplasia. No Helicobacter organisms identified. No dysplasia or malignancy identified. . Part B: GE JUNCTION: Gastroesophageal junction mucosa with mild chronic inflammation. No goblet cell metaplasia, dysplasia, or malignancy identified. [facility] 10/15/20251758 Local . 01 Electronically signed: . Mustapha Oconnor MD, Pathologist NPI- [id number] . 01 Gross description: . A. Received in formalin with two patient identifiers, and antrum BX are two, 0.2-0.3 cm, montelongo tissue fragments, entirely submitted in A1. . B. Received in formalin with two patient identifiers, and GE junction BX are two, 0.2-0.3 cm, montelongo tissue fragments, entirely submitted in B1. ([id number]) /MRV 10/15/20251758 Local . 01 Microscopic: . Part A: ANTRUM: An immunohistochemical stain was performed to evaluate for Helicobacter organisms and is negative. The control stains appropriately. * This test was developed and the performance characteristics were validated by [employer]. It has not been cleared or approved by the Food and Drug Administration. . 01 Pathologist provided ICD-10: K20.90, K29.50, K31.A0 . 01 CPT . 827078, 897378, [id number] Specimen Comment: A courtesy copy of this report has been sent to [phone] Performed at: [address] [address], [place], [place] [id number] MD Mustapha Oconnor MD Phone: [phone]
[2025-10-06 07:16] VITALS: BP 121/77; PULSE 77; RESP 16; TEMP 36.7; O2SAT 96
--- NOTE | 2025-10-06 07:24 | PM.PREOP ---
Pre-operative Note COVID-19 COVID-19 status: Not tested Interval Note History & Physical reviewed/Exam performed by Physician: Yes Changes to H&P: No ASA Class (for procedural sedation): II
[2025-10-06] MEDS: LACTATED RINGERS 1,000 ML 42 ML IV (07:51)
[2025-10-06 08:32] VITALS: BP 93/59; PULSE 66; RESP 10; TEMP 36.6; O2SAT 95
--- NOTE | 2025-10-06 08:32 | P.OP.EGD&C_ITS ---
Operative Date/Time/Diagnoses Date of procedure: 10/06/25 Time of procedure: 08:33 Pre-op diagnosis: Reflux and colon cancer screening Post-op diagnosis: same Procedure & Clinicians Study performed: EGD and colonoscopy Same procedure(s) as scheduled: Yes Surgeon: Lon Esparza Anesthesia Type: MAC +/- Procedure Notes Procedure in detail: Surgeon: Lon Esparza MD Anesthesia: Lacey Alejandra [employer] Procedure in detail: A timeout was performed. A bite blocked was placed and monitors were attached to the patient. The patient was positioned in the left lateral decubitus position. Sedation was administered. Once the patient was sedated the endoscope was inserted through the bite block and passed through the esophagus and stomach and into the duodenum. The duodenum appeared normal. We then withdrew the scope into the stomach. There was mild antritis and random biopsies were taken from the antrum with cold forceps. The endoscope was retroflexed and a small hiatal hernia was noted. The endoscope was straightned and withdrawn into the esophagus. The hiatal hernia was measured as 5 cm. The hiatus was at a proximally 35 cm in the GE junction at 30 cm. There were no obvious salmon-colored streaks. Random biopsies were taken from the GE junction with the cold forceps. The rest of the esophagus was normal. EGD findings: Mild antritis and a 5 cm hiatal hernia Next we repositioned the patient for a colonoscopy. A digital rectal exam was performed and was normal. The colonoscope was inserted and advanced to the cecum. The appendiceal orifice was identified and photographed. The scope was slowly withdrawn over greater than 6 minutes. No polyps were found. There was extensive sigmoid colon diverticulosis in the sigmoid colon was very narrow and tortuous. The scope was retroflexed in the rectum and no other abnormalities were found. Colonoscopy findings: Sigmoid colon diverticulosis Scope withdrawal time: 8 minutes Sedation minutes: 36 minutes Estimated Blood Loss: 3 Complications: none Post-procedure Disposition: PACU
[2025-10-06 08:38] VITALS: BP 95/59; PULSE 66; RESP 10; O2SAT 95
[2025-10-06 08:40] VITALS: BP 101/63; PULSE 63; RESP 14; O2SAT 95
[2025-10-06 08:47] VITALS: BP 106/67; PULSE 72; RESP 21; O2SAT 97
[2025-10-06 08:54] VITALS: BP 120/68; PULSE 72; RESP 16; O2SAT 98
== END 2025-10-06 09:15 | disposition home or self-care (01) ==
PROVIDERS: PCP Family Medicine; Referring Provider Surgery; Visit Provider Surgery
PROC: 0DJ08ZZ Inspection of Upper Intestinal Tract, Via Natural or Artificial Opening Endoscopic (ICD-10-PCS; CPT 43239; principal; 2025-10-06 07:45)
PROC: 0DJD8ZZ Inspection of Lower Intestinal Tract, Via Natural or Artificial Opening Endoscopic (ICD-10-PCS; CPT 45378; 2025-10-06 07:45)
DX: Z12.11 Encounter for screening for malignant neoplasm of colon (principal); K29.50 Unspecified chronic gastritis without bleeding; K31.A0 Gastric intestinal metaplasia, unspecified; K21.00 Gastro-esophageal reflux disease with esophagitis, without bleeding; K44.9 Diaphragmatic hernia without obstruction or gangrene; K57.30 Diverticulosis of large intestine without perforation or abscess without bleeding; E78.2 Mixed hyperlipidemia; E66.9 Obesity, unspecified; Z68.31 Body mass index [BMI] 31.0-31.9, adult
CPT/HCPCS: 43239; G0121; J2704; J7120